=== PATIENT | female | born 1990 | race Hispanic/Latino ===

== ENCOUNTER 2019-06-18 13:01 | Emergency (ER) | payer SELFPAY ==
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
--- NOTE | 2019-06-18 14:11 | EDPHYS ---
Physician Documentation [facility] Name: Destiny Martinez Age: 29 yrs Sex: Female : 1990 Arrival Date: 06/18/2019 Time: 13:05 Bed 12 Private MD: ED Physician Zaina Palacios HPI: 06/18 14:02 This 29 yrs old Female presents to ER via Ambulatory with complaints of ma2 Laceration To Arm. 14:02 The laceration(s) is(are) located on the right arm. Onset: The symptoms/episode ma2 began/occurred suddenly, gradually, 1 hour(s) ago. BARGE HAND: 13:10 LMP N/A - Irregular menses aj1 Historical: - Allergies: 13:10 No Known Allergies; aj1 - Home Meds: 13:10 None [Active]; aj1 - PMHx: 13:10 None; aj1 - PSHx: 13:10 None; aj1 - Immunization history:: Last tetanus immunization: < 5 years ago. - Social history:: Smoking status: Patient uses tobacco products, denies chronic smoking, but will smoke occasionally, vapes daily, Patient/guardian denies using alcohol, street drugs, The patient lives alone. - Ebola Screening: : Patient denies travel to an Ebola-affected area in the 21 days before illness onset. - Family history:: not pertinent. ROS: 14:02 Constitutional: Negative for fever, chills, and weight loss, Cardiovascular: Negative ma2 for chest pain, palpitations, and edema, Respiratory: Negative for shortness of breath, cough, wheezing, and pleuritic chest pain, Abdomen/GI: Negative for abdominal pain, nausea, diarrhea, and constipation. 14:02 All other systems are negative. Exam: 14:02 Constitutional: This is a well developed, well nourished patient who is awake, alert, ma2 and in no acute distress. Chest/axilla: Normal chest wall appearance and motion. Nontender with no deformity. No lesions are appreciated. Cardiovascular: Regular rate and rhythm with a normal S1 and S2. No gallops, murmurs, or rubs. Normal PMI, no JVD. No pulse deficits. Respiratory: Lungs have equal breath sounds bilaterally, clear to auscultation and percussion. No rales, rhonchi or wheezes noted. No increased work of breathing, no retractions or nasal flaring. Abdomen/GI: Soft, non-tender, with normal bowel sounds. No distension or tympany. No guarding or rebound. No evidence of tenderness throughout. Back: No spinal tenderness. No costovertebral tenderness. Full range of motion. Skin: Warm, dry with normal turgor. Normal color with no rashes, no lesions, and no evidence of cellulitis. MS/ Extremity: has small abrasion to right forearm, no foriegn body, cleaned and dressing applied, Pulses equal, no cyanosis. Neurovascular intact. Full, normal range of motion. Neuro: Awake and alert, GCS 15, oriented to person, place, time, and situation. Cranial nerves II-XII grossly intact. Motor strength 5/5 in all extremities. Sensory grossly intact. Cerebellar exam normal. Normal gait. Vital Signs: 13:10 BP 139 / 70; Pulse 97; Resp 18; Temp 97.3; Pulse Ox 97% on R/A; Weight 74.84 kg (R); aj1 Height 5 ft. 3 in. (160.02 cm) (R); 13:10 Body Mass Index 29.23 (74.84 kg, 160.02 cm) aj1 MDM: 13:13 Patient medically screened. ma2 14:02 Differential diagnosis: superficial abrasions, no lacerations. Data reviewed: vital va2 signs, nurses notes. Counseling: I had a detailed discussion with the patient and/or guardian regarding: the historical points, exam findings, and any diagnostic results supporting the discharge/admit diagnosis, the presence of at least one elevated blood pressure reading (>120/80) during this emergency department visit, the need for outpatient follow up. 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 Exp: hb 12/02/2020. Lot #: [id number]. } Route: IM; Site: right deltoid; 14:23 Follow up: Response: Medication administered at discharge. Disposition: 06/18/19 14:07 Discharged to Home. Impression: Abrasion of forearm. - Condition is Stable. - Discharge Instructions: Abrasion. - Prescriptions for Tylenol- Codeine #3 300-30 mg Oral Tablet - take 2 tablet by ORAL route every 6 hours As needed; 6 tablet. - Medication Reconciliation Form, Thank You Letter, Antibiotic Education, Prescription Opioid Use form. - Follow up: Private Physician; When: Tomorrow; Reason: Continuance of care. Signatures: Judy Chance RN RN aj1 Radha Walker RN RN Zaina Palacios MD MD ma2 Corrections: (The following items were deleted from the chart) 14:23 14:07 06/18/2019 14:07 Discharged to Home. Impression: Abrasion of forearm. Condition hb is Stable. Forms are Medication Reconciliation Form, Thank You Letter, Antibiotic Education, Prescription Opioid Use. Follow up: Private Physician; When: Tomorrow; Reason: Continuance of care. ma2
== END 2019-06-18 14:23 | disposition home or self-care (01) ==
LOC: ER 13:01
DX: S50.811A Abrasion of right forearm, initial encounter (principal); W25.XXXA Contact with sharp glass, initial encounter; Y93.89 Activity, other specified; Y92.9 Unspecified place or not applicable; Z23 Encounter for immunization
CPT/HCPCS: 90471; 99283